=== PATIENT | female | born 1975 | race Caucasian/White ===

== ENCOUNTER 2020-10-24 10:23 | Emergency (ER) | payer OTHER, SELFPAY ==
--- NOTE | 2020-10-24 11:08 | ED.SKABFB ---
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 Patient states she has a shorter 1 day history of raised itchy eruption on her right bra line that she is concerned might be shingles, as she feels she has more work stress. She has similar new eruption on her right forearm; no fever, preceding pain, discharge, streaking, prior/other rash. Symptoms are mild, worse with scratching Related Data Home Medications Medication Instructions Recorded Confirmed escitalopram oxalate mg 10/24/20 estradiol 10/24/20 trazodone 10/24/20 Allergies Allergy/AdvReac Type Severity Reaction Status Date / Time bupropion Allergy Severe Unverified 09/17/18 17:10 minocycline Allergy Severe Unverified 09/17/18 17:10 Sulfa (Sulfonamide Allergy Severe Unverified 09/17/18 17:10 Antibiotics) azithromycin Allergy Mild Unverified 09/17/18 17:10 Review of Systems Review of Systems: Narrative: General/Constitutional: No weight loss,fever Eyes: N0: Redness,discharge Ears/Nose/Throat: No: Epistaxis,ear discharge Respiratory: Denies: Hemoptysis Gastrointestinal: No Vomiting, Bleeding-rectal Skin: No Lumps, REPORTS eruption Neurologic: No Focal Weakness,Sz Hematologic: Denies: Petechiae/Purpura Psychiatric: No: Suicida ideationl All Other Systems: Reviewed and Negative PMFSH Comments At time of signature, agree with nursing past medical, surgical, social and family history. There is no relevant family history pertinent to the presenting complaint Exam Narrative: Exam Narrative: General Appearance: Overweight/well nourished,Normocephalic, Conjunctiva clear Ear: External ear normal Nose: Normal nose, Nare clear Mouth/Throat: Normal appearing, Supple Respiratory: Airway patent, No respiratory distress Musculoskeletal: Moves all extremities, Non tender Skin: Warm, Dry (small, isolated macular papular skin eruption of right bra line, right forearm) Neurological: A&O x3,, Normal affect Discharge Plan Discharge Clinical Impression: Skin infection Patient Disposition: Home, Self-Care Condition: Stable Instructions: Antibiotic Form, Folliculitis (ED) Additional Instructions: Take clindamycin with food, probiotic and/or antacid; stop if diarrhea occurs. Keep area covered for family members and coworkers Keep photo log of area, as eruption is new Prescriptions: New valacyclovir [Valtrex] 1 gram tablet 1,000 mg PO TID 7 Days Qty: 21 RF: 0 clindamycin HCl 300 mg capsule 300 mg PO TID Qty: 15 RF: 0 mupirocin 2 % ointment 1 applic TOPICAL TID Qty: 30 RF: 0 No Action trazodone 50 mg tablet RF: 0 estradiol 0.05 mg/24 hr patch semiweekly RF: 0 escitalopram oxalate 5 mg tablet RF: 0 Follow-up/Referrals: Carmen,Moises Boothe MD [Primary Care Provider] - Stand Alone Forms: Work/School Release IP
== END 2020-10-24 11:19 | disposition home or self-care (01) ==
PROVIDERS: Emergency Provider Emergency Medicine; PCP Internal Medicine
DX: L08.9 Local infection of the skin and subcutaneous tissue, unspecified (principal)
CPT/HCPCS: 99213; G0463